=== PATIENT | male | born 1960 | race American Indian/Alaskan Native ===

== ENCOUNTER 2017-01-19 16:54 | Inpatient (IN) | payer MEDICAID ==
[2017-01-19 17:27] LABS: Basophils % (Auto) 0.7 % (0.0-1.8); Eosinophils % (Auto) 0.8 % (0.0-4.3); Hematocrit 44.2 % (35.5-45.6); Mean Corpuscular HGB Conc 32 % (32-34); Mean Corpuscular Hemoglobin 26 pg (28-32); Mean Corpuscular Volume 82 fl (84-94); Platelet Count 237 K/mm3 (140-440); Red Blood Count 5.38 M/mm3 (3.65-5.03); Red Cell Distribution Width 15.9 % (13.2-15.2); White Blood Count 10.9 K/mm3 (4.5-11.0)
[2017-01-19 17:51] LABS: Anion Gap 22 mmol/L; BUN/Creatinine Ratio 11.42; Blood Urea Nitrogen 8 mg/dL (9-20); Calcium 8.8 mg/dL (8.4-10.2); Carbon Dioxide 23 mmol/L (22-30); Chloride 93.6 mmol/L (98-107); Glucose 169 mg/dL (75-100); Potassium 4.2 mmol/L (3.6-5.0); Sodium 134 mmol/L (137-145)
[2017-01-19 19:11] LABS: Cholesterol 201 mg/dL (50-199); HDL Cholesterol 67 mg/dL (40-59); LDL Cholesterol,Direct 107 mg/dL (50-130); Triglycerides 135 mg/dL (2-149)
[2017-01-19] MEDS ORDERED: BABY ASPIRIN PO ONE (21:41)
--- NOTE | 2017-01-19 22:00 | Emergency Department Report ---
ED Chest Pain HPI - General Chief Complaint: Chest Pain Stated Complaint: CHEST PAIN Time Seen by Provider: 01/19/17 20:00 Source: patient Mode of arrival: Ambulatory Limitations: No Limitations - History of Present Illness Initial Comments: Patient is a 56-year-old male past medical history hypertension and diabetes who presents with chest pain been going on since this morning. He states that the chest pains of burning type of pain located in the middle of his chest it radiates to his shoulder. The pain is a 6 out of 10. Nothing makes the chest pain better or worse. Patient denies having shortness of breath or any nausea. Patient states that chest pain started when he was using the bathroom this morning. Patient has a history of cardiac disease in the family. He's never had chest pain like this before. - Related Data Home Medications Medication Instructions Recorded Confirmed Last Taken No Known Home Medications [No 01/19/17 01/19/17 Unknown Reported Home Medications] Allergies Allergy/AdvReac Type Severity Reaction Status Date / Time No Known Allergies Allergy Verified 01/19/17 17:12 Heart Score - HEART Score History: Highly suspicious EKG: Significant ST-depression Age: 45-65 Risk factors: > 3 risk factors or hx of atherosclerotic disease Troponin: 1-3x normal limit HEART Score: 8 ED Review of Systems ROS: Stated complaint: CHEST PAIN Other details as noted in HPI Constitutional: denies: chills, fever Eyes: denies: eye pain, eye discharge, vision change ENT: denies: ear pain, throat pain Respiratory: denies: cough, shortness of breath, wheezing Cardiovascular: chest pain Endocrine: no symptoms reported Gastrointestinal: denies: abdominal pain, nausea, diarrhea Genitourinary: denies: urgency, dysuria Musculoskeletal: denies: back pain, joint swelling, arthralgia Skin: denies: rash, lesions Neurological: denies: headache, weakness, paresthesias Psychiatric: denies: anxiety, depression Hematological/Lymphatic: denies: easy bleeding, easy bruising ED Past Medical Hx - Past Medical History Hx Hypertension: Yes Hx Diabetes: Yes Additional medical history: reflux - Surgical History Past Surgical History?: Yes Additional Surgical History: both knees - Social History Smoking Status: Current Every Day Smoker Substance Use Type: Alcohol - Medications Home Medications: Home Medications Medication Instructions Recorded Confirmed Last Taken Type No Known Home Medications [No 01/19/17 01/19/17 Unknown History Reported Home Medications] ED Physical Exam - General Limitations: No Limitations General appearance: alert - Head Head exam: Present: atraumatic, normocephalic - Eye Eye exam: Present: normal appearance - ENT ENT exam: Present: mucous membranes moist - Neck Neck exam: Present: normal inspection - Respiratory Respiratory exam: Present: normal lung sounds bilaterally. Absent: respiratory distress - Cardiovascular Cardiovascular Exam: Present: regular rate, normal rhythm. Absent: systolic murmur, diastolic murmur, rubs, gallop - GI/Abdominal GI/Abdominal exam: Present: soft, normal bowel sounds - Rectal Rectal exam: Present: deferred - Back Exam Back exam: Present: normal inspection - Neurological Exam Neurological exam: Present: alert, oriented X3, CN II-XII intact - Psychiatric Psychiatric exam: Present: normal affect, normal mood - Skin Skin exam: Present: warm, dry, intact, normal color. Absent: rash ED Course Vital Signs 01/19/17 17:09 Temperature 98.1 F Pulse Rate 73 Respiratory 16 Rate Blood Pressure 152/87 O2 Sat by Pulse 100 Oximetry - Reevaluation(s) Reevaluation #1: 01/19/17 22:02 Patient still complaining of chest pain repeat troponin came back elevated I'll order a repeat EKG LARRY score - Larry Score Age > 65: (0) No Aspirin use within the Past 7 Days: (0) No 3 or more CAD Risk Factors: (1) Yes 2 or more Angina events in past 24 hrs: (0) No Known CAD with more than 50% Stenosis: (0) No Elevated Cardiac Markers: (0) No ST Deviation Greater than 0.5mm: (0) No LARRY Score: 1 ED Medical Decision Making - Lab Data Result diagrams: 01/19/17 17:15 01/19/17 17:15 Lab Results 01/19/17 01/19/17 01/19/17 Range/Units 17:15 17:15 20:42 WBC 10.9 (4.5-11.0) K/mm3 RBC 5.38 H (3.65-5.03) M/mm3 Hgb 14.0 (11.8-15.2) gm/dl Hct 44.2 (35.5-45.6) % MCV 82 L (84-94) fl MCH 26 L (28-32) pg MCHC 32 (32-34) % RDW 15.9 H (13.2-15.2) % Plt Count 237 (140-440) K/mm3 Lymph % (Auto) 31.7 (13.4-35.0) % [place] % (Auto) 7.7 H (0.0-7.3) % Eos % (Auto) 0.8 (0.0-4.3) % Baso % (Auto) 0.7 (0.0-1.8) % Lymph # 3.4 (1.2-5.4) K/mm3 [place] # 0.8 (0.0-0.8) K/mm3 Eos # 0.1 (0.0-0.4) K/mm3 Baso # 0.1 (0.0-0.1) K/mm3 Seg Neutrophils % 59.1 (40.0-70.0) % Seg Neutrophils # 6.4 (1.8-7.7) K/mm3 Sodium 134 L (137-145) mmol/L Potassium 4.2 (3.6-5.0) mmol/L Chloride 93.6 L (98-107) mmol/L Carbon Dioxide 23 (22-30) mmol/L Anion Gap 22 mmol/L BUN 8 L (9-20) mg/dL Creatinine 0.7 L (0.8-1.5) mg/dL Estimated GFR > 60 ml/min BUN/Creatinine Ratio 11.42 % Glucose 169 H (75-100) mg/dL Calcium 8.8 (8.4-10.2) mg/dL Troponin T 0.054 H 0.142 H* D (0.00-0.029) ng/mL Triglycerides 135 (2-149) mg/dL Cholesterol 201 H (50-199) mg/dL LDL Cholesterol Direct 107 (50-130) mg/dL HDL Cholesterol 67 H (40-59) mg/dL Cholesterol/HDL Ratio 3.00 % - EKG Data -: EKG Interpreted by Me - EKG Data 01/19/17 22:03 EKG shows normal sinus rhythm possible left atrial enlargement and left axis deviation. She has an incomplete left bundle-branch block and T-wave inversions in V4, V5 and V6 - Medical Decision Making Chief medical diagnosis: Non-STEMI Differential medical diagnosis: Unstable angina, GERD, pneumothorax CHEST x-ray, EKG, CBC, CMP, troponin and I will give patient aspirin. Due to patient having significant risk factors for coronary artery disease I will admit patient to hospital patient will need IV analgesic medication for his pain. Critical care attestation.: If time is entered above; I have spent that time in minutes in the direct care of this critically ill patient, excluding procedure time. ED Disposition Clinical Impression: Chest pain at rest, Non-ST elevated myocardial infarction (non-STEMI) Disposition: OP ADMIT IP TO THIS HOSP Is pt being admited?: Yes Does the pt Need Aspirin: No Condition: Stable Instructions: Chest Pain (ED) Referrals: PRIMARY CARE, [Primary Care Provider] - 3-5 Days Time of Disposition: 22:24
[2017-01-19] MEDS ORDERED: MORPHINE IV ONE (22:07)
--- NOTE | 2017-01-19 22:27 | XRay Report ---
FINAL REPORT EXAM: XR CHEST ROUTINE 2V HISTORY: chest pain TECHNIQUE: PA and lateral chest radiographs PRIORS: None. FINDINGS: No focal consolidations are seen in the lungs and there are no pleural effusions.The cardiomediastinal silhouette is within normal limits for size and contour. No acute osseous abnormality is identified. IMPRESSION: 1. No definite radiographic evidence of acute cardiopulmonary disease.
[2017-01-19] MEDS ORDERED: HEPARIN 10,000 UNITS/10 ML IV ONE (23:06)
[2017-01-19] MEDS ORDERED: ZOFRAN IV PRN (23:10)
[2017-01-19] MEDS ORDERED: MORPHINE IV PRN (23:10)
[2017-01-19] MEDS ORDERED: TYLENOL PO PRN (23:11)
[2017-01-19 23:53] LABS: Hematocrit 42.8 % (35.5-45.6); Hemoglobin 13.5 gm/dl (11.8-15.2)
[2017-01-20 00:12] LABS: INR 1.02 (0.87-1.13)
[2017-01-20 00:13] LABS: Partial Thromboplastin Time 30.2 Sec. (24.2-36.6)
[2017-01-20] MEDS: HEPARIN/ 0.45% NACL-25,000 UNIT/500 ML 25,000 UNIT/500 ML BAG IV SCH (00:55)
[2017-01-20] MEDS: NITRO-BID 2% TP SCH ×5 (00:57→17:06)
--- NOTE | 2017-01-20 07:58 | Admit Criteria Form ---
Admission Criteria Documentation: MYOCARDIAL INFARCTION Clinical Indications for Admission to Inpatient Care (Place 'X' for any and all applicable criteria): Admission is indicated for 1 or more of the following (1)(2)(3)(4): [X]I. Acute IL [X]II. Contraindications and/or Inappropriate clinical situations for Observational Care in patients with Myocardial Infarction, when ANY ONE of the following is required: [ ]a) Patient with High risk of cardiac embolism (e.g, patients with previous cardiac embolism, LVEF < 40%, age >75 and patients with prosthetic valve) 18 [ ]b) Patient with Moderate risk including DM patient, CAD and patient aged 65-75 18 [X]c) Patient with any change in cardiac biomarker especially troponin should be managed as high risk in an inpatient setting 19 [ ]d) Physician judgement irrespective of ECG and other diagnostic findings 20 [ ]III.General contraindications and/or Inappropriate clinical situations for Observational Care in patients with Myocardial Infarction, when ANY ONE of the following is required: [ ]a) Prediction of prolongation of LOS based on ANY ONE of the following may be considered as a contraindication for observational care 2, 3, 4, 5, 6, 7, 8, 9, 10, 11 [ ]i) Age > 65 yrs. [ ]ii) Patient arriving by ambulance [ ]iii) Patient with high acuity [ ]iv) Patient requiring vital sign monitoring [ ]v) Patient on IV medication [ ]b) Systolic blood pressures greater than or equal to 180mmHg 3,12 [ ]c) Patient with altered mental status including delirium and other alteration of consciousness, (3) [ ]d) Patient whose discharge disposition will be to a fpc home or rehabilitation home should not be managed in Emergency Department Observation Unit. CMS rule requires 3 days hospital stay before such placement. 3,13 [ ]e) Patient with failure to thrive due to broad array of etiologies 3 ,16,17 [ ]f) Inability to ambulate 3,14 Extended stay beyond goal length of stay may be needed for (1)(18)(20)(24)(25): [ ]a) Hemodynamic instability, persisting symptoms after intensive medical management, or recurring severe, prolonged symptoms [ ]b) Intravascular procedural complications such as acute vessel closure, stent thrombosis, stent malposition, or vessel dissection (26)(27)(28) [ ]c) Extravascular procedural complications such as retroperitoneal hematoma , pericardial effusion, or cardiac tamponade [ ]d) Entry site complications causing bleeding, hematoma or distal ischemia and requiring ongoing monitoring, surgical repair or surgical thrombectomy. Dangerous arrhythmia [ ]e) Complicated percutaneous coronary intervention (e.g., unsuccessful percutaneous coronary intervention or percutaneous coronary intervention of non- [facility] vessel) [ ]f) Urgent or emergent surgery for complications of IL (e.g., ventricular rupture, valvular insufficiency) [ ]g) Surgical revascularization via coronary artery bypass graft [ ]h) Heart failure (e.g., pulmonary edema) [ ]i) Unstable pulmonary comorbidities, including COPD or pneumonia (31) [ ]j) Acute renal failure The original [employer] content created by [employer] has been revised. The portions of the content which have been revised are identified through the use of italic text or in bold, and [facility] [employer] has neither reviewed nor approved the modified material. All other unmodified content is copyright [facility] Please see references footnoted in the original [facility] edition 2016 Admission Criteria Met: Yes
--- NOTE | 2017-01-20 08:16 | Progress Note ---
Assessment and Plan Assessment and plan: --Non-ST elevation CO Aspirin beta blockers and elvia inhibitors nitrates and statins Heparin drip per protocol, lipid panel, Echocardiogram for left ventricle function ejection fraction Cardiology evaluation for possible heart cath --Dyslipidemia: Add Lipitor, Low-cholesterol diet --Ongoing tobacco use: Smoking cessation counseling done Strongly advised to quit tobacco use, nicotine patch as needed --DVT prophylaxis: Heparin drip Closely monitor the patient and adjust the management as needed Follow cardiology evaluation and recommendations Plan of care discussed with the patient and his nurse History Interval history: Patient Seen and evaluated medical records reviewed No new events reported by the nursing staff Complaints of intermittent chest pain Alert awake oriented 3 not in acute distress Hospitalist Physical - Constitutional Vitals: Temp Pulse Resp BP Pulse Ox 100.3 F H 76 18 147/85 99 01/20/17 07:15 01/20/17 07:15 01/20/17 07:15 01/20/17 07:15 01/20/17 07:15 General appearance: Present: no acute distress, well-nourished - EENT Eyes: Present: PERRL, EOM intact - Neck Neck: Present: supple, normal ROM - Respiratory Respiratory effort: normal Respiratory: bilateral: diminished, negative: rales, rhonchi, wheezing - Cardiovascular Rhythm: regular Heart Sounds: Present: S1 & S2 - Extremities Extremities: no ischemia, No edema Extremity abnormal: edema, cyanosis - Abdominal General gastrointestinal: soft, non-tender, non-distended, normal bowel sounds - Integumentary Integumentary: Present: clear, warm - Psychiatric Psychiatric: appropriate mood/affect, cooperative - Neurologic Neurologic: CNII-XII intact, moves all extremities Results - Labs CBC & Chem 7: 01/19/17 23:28 01/19/17 17:15 Labs: Laboratory Last Values WBC 10.9 K/mm3 (4.5-11.0) 01/19/17 17:15 RBC 5.38 M/mm3 (3.65-5.03) H 01/19/17 17:15 Hgb 13.5 gm/dl (11.8-15.2) 01/19/17 23:28 Hct 42.8 % (35.5-45.6) 01/19/17 23:28 MCV 82 fl (84-94) L 01/19/17 17:15 MCH 26 pg (28-32) L 01/19/17 17:15 MCHC 32 % (32-34) 01/19/17 17:15 RDW 15.9 % (13.2-15.2) H 01/19/17 17:15 Plt Count 222 K/mm3 (140-440) 01/19/17 23:28 Lymph % (Auto) 31.7 % (13.4-35.0) 01/19/17 17:15 [place] % (Auto) 7.7 % (0.0-7.3) H 01/19/17 17:15 Eos % (Auto) 0.8 % (0.0-4.3) 01/19/17 17:15 Baso % (Auto) 0.7 % (0.0-1.8) 01/19/17 17:15 Lymph # 3.4 K/mm3 (1.2-5.4) 01/19/17 17:15 [place] # 0.8 K/mm3 (0.0-0.8) 01/19/17 17:15 Eos # 0.1 K/mm3 (0.0-0.4) 01/19/17 17:15 Baso # 0.1 K/mm3 (0.0-0.1) 01/19/17 17:15 Seg Neutrophils % 59.1 % (40.0-70.0) 01/19/17 17:15 Seg Neutrophils # 6.4 K/mm3 (1.8-7.7) 01/19/17 17:15 PT 13.3 Sec. (12.2-14.9) 01/19/17 23:28 INR 1.02 (0.87-1.13) 01/19/17 23:28 APTT 30.2 Sec. (24.2-36.6) 01/19/17 23:28 Heparin Anti-Xa Level 0.24 U.I./ml (0.3-0.7) L 01/20/17 07:29 Sodium 134 mmol/L (137-145) L 01/19/17 17:15 Potassium 4.2 mmol/L (3.6-5.0) 01/19/17 17:15 Chloride 93.6 mmol/L (98-107) L 01/19/17 17:15 Carbon Dioxide 23 mmol/L (22-30) 01/19/17 17:15 Anion Gap 22 mmol/L 01/19/17 17:15 BUN 8 mg/dL (9-20) L 01/19/17 17:15 Creatinine 0.7 mg/dL (0.8-1.5) L 01/19/17 17:15 Estimated GFR > 60 ml/min 01/19/17 17:15 BUN/Creatinine Ratio 11.42 % 01/19/17 17:15 Glucose 169 mg/dL (75-100) H 01/19/17 17:15 Calcium 8.8 mg/dL (8.4-10.2) 01/19/17 17:15 Troponin T 0.322 ng/mL (0.00-0.029) H* D 01/19/17 23:28 Triglycerides 135 mg/dL (2-149) 01/19/17 17:15 Cholesterol 201 mg/dL (50-199) H 01/19/17 17:15 LDL Cholesterol Direct 107 mg/dL (50-130) 01/19/17 17:15 HDL Cholesterol 67 mg/dL (40-59) H 01/19/17 17:15 Cholesterol/HDL Ratio 3.00 % 01/19/17 17:15
--- NOTE | 2017-01-20 09:11 | History and Physical Report ---
CHIEF COMPLAINT: Chest pain. HISTORY OF PRESENTING ILLNESS: The patient is a 56-year-old male who said he has been having chest pain going on since yesterday morning. He described the pain as pressure sensation involving the retrosternal and precordial area radiating to the left shoulder area. The patient quantifies pain as 6/10. There was no history of shortness of breath. No history of nausea or vomiting. There was also no history of diaphoresis or dizziness. The patient said he has had chest pain before, that was worked up and resulted in nothing significant. PAST MEDICAL HISTORY: Pertinent for diabetes mellitus and hypertension as well as gastroesophageal reflux disease. PAST SURGICAL HISTORY: Pertinent for both knee surgery. FAMILY HISTORY: There is family history of coronary artery disease. SOCIAL HISTORY: The patient smokes cigarettes, drinks alcohol and denies use of illicit drugs. MEDICATIONS: The patient's home medications are not known. ALLERGIES: There are no known drug allergies. REVIEW OF SYSTEMS: CONSTITUTIONAL: There is no fever, no chills, no diaphoresis. HEENT: There is no headache or sore throat. CARDIOVASCULAR: Shows chest pain. No orthopnea. RESPIRATORY: There is no shortness of breath or cough. GASTROINTESTINAL: There is no nausea, no vomiting, no abdominal pain, diarrhea or constipation. NEUROLOGICAL: There is no numbness, no dizziness, no altered mental status. MUSCULOSKELETAL: There is no joint pain or swelling. DERMATOLOGICAL: There is no skin rash or itching. GENITOURINARY: There is no dysuria, hematuria, or flank pain. Rest of system review is normal. PHYSICAL EXAMINATION: GENERAL: At the time of exam, the patient was found to be alert, oriented x 3 and not in acute distress. VITAL SIGNS: Shows normal temperature with pulse of 69, respirations 16, blood pressure 162/92, O2 sat of 96% on room air. HEENT: Shows pupils to be equal, round, reactive to light and accommodation. Extraocular muscles are intact. NECK: Supple with no JVD or carotid bruit. CARDIOVASCULAR SYSTEM: Show first and second heart sounds with no gallops or murmur. RESPIRATORY SYSTEM: Show good air entry on both sides of the lung with no abnormal breath sounds. GASTROINTESTINAL SYSTEM: Show abdomen to be full, soft, nontender with no organomegaly or rigidity. NEUROLOGIC: Exam shows no focal deficit. MUSCULOSKELETAL: Show no joint swelling or tenderness. DERMATOLOGICAL SYSTEM: Show no skin rash. GENITOURINARY: Showing no costovertebral angle tenderness. PERTINENT LABORATORY DATA AND IMAGING STUDIES: The patient has CBC done with normal white count, normal hemoglobin, normal hematocrit with an unremarkable CBC differential. Coagulation studies came back normal. Chemistry shows slight decrease in sodium of 134 with normal potassium and low chloride of 93.6. The patient's renal function test was unremarkable. Cardiac enzymes show elevated troponin level of 0.054 with the second troponin level greater than he initially had to 0.322. The patient's lipid panel showed high cholesterol of 201 with also elevated HDL cholesterol of 67. IMAGING STUDIES: The patient had chest x-ray done that shows no acute cardiopulmonary lesion. DIAGNOSIS: Non-ST elevation myocardial infarction. PLAN: The patient will be admitted to medical floor on telemetry and will be on heparin per NSTEMI protocol with bolus and drip started. The patient will have cardiac enzymes, troponin checked q.6 hours x 1 more level. The patient will be on aspirin 325 mg by mouth daily and also will be on morphine 2 mg IV every 3 hours as needed for pain. The patient will be on nitro paste 1 inch to anterior chest wall q.i.d. and will be on Zofran 4 mg IV q.6 hours as needed for nausea and vomiting. The patient will be on Tylenol 650 mg p.o. q.4h. for fever and headache and will have Cardiology consult with Dr. Landon. The patient will remain n.p.o. for possible Cardiology intervention in the morning and patient's home medications will also be reconciled and started accordingly. The patient will be on oxygen 2 L by nasal cannula. JOB# [id number] OCN/NTS
--- NOTE | 2017-01-20 12:30 | Event Note ---
Date: 01/20/17 Cardiology note dictated. #1 chest pain with abnormal cardiac enzymes and abnormal EKG possible NSTEMI #2 history of hypertension #3 history of diabetes Patient is seen for cardiac evaluation.Patient is curently asymtomatic. Plan is cardiac cath for further evaluation Thank you Dr BRIGITTE Killian
[2017-01-20] MEDS ORDERED: NACL 0.9% 500 ML 500 ML IV SCH (13:00)
[2017-01-20 13:17] LABS: Creatine Kinase MB 47.8 ng/mL (0.0-4.0)
[2017-01-20] MEDS: ZESTRIL PO SCH (13:24)
[2017-01-20] MEDS: HABITROL TD SCH ×2 (13:25→15:11)
[2017-01-20] MEDS: LOPRESSOR PO SCH (13:27)
[2017-01-20] MEDS: ASPIRIN PO SCH (13:28)
[2017-01-20] MEDS: PEPCID PO SCH (23:25)
[2017-01-21] MEDS: HEPARIN/ 0.45% NACL-25,000 UNIT/500 ML 25,000 UNIT/500 ML BAG IV SCH (00:06)
[2017-01-21 05:58] LABS: Basophils % (Auto) 0.8 % (0.0-1.8); Eosinophils % (Auto) 1.6 % (0.0-4.3); Hematocrit 40.1 % (35.5-45.6); Hemoglobin 12.8 gm/dl (11.8-15.2); Mean Corpuscular HGB Conc 32 % (32-34); Mean Corpuscular Hemoglobin 26 pg (28-32); Mean Corpuscular Volume 82 fl (84-94); Platelet Count 195 K/mm3 (140-440); Red Blood Count 4.88 M/mm3 (3.65-5.03); Red Cell Distribution Width 15.3 % (13.2-15.2); White Blood Count 9.1 K/mm3 (4.5-11.0)
[2017-01-21 06:06] LABS: INR 1.07 (0.87-1.13)
--- NOTE | 2017-01-21 06:12 | Consultation ---
CARDIOLOGY EVALUATION REASON FOR EVALUATION: Chest pain and abnormal cardiac enzymes. 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 The patient smokes about a pack of cigarettes a week. Yesterday morning for the first time, he woke up with anterior chest discomfort described as a burning sensation. It lasted almost throughout until he came to the hospital. In the Emergency Room, the electrocardiograms showed sinus rhythm with left ventricular hypertrophy and T-wave abnormalities in the inferior and lateral leads. The patient is admitted for further evaluation. His second set of troponin is noted to be mildly elevated and hence the further cardiac evaluation. Today, his chest pain has improved significantly. No further discomfort noted. When he had the discomfort, it is mostly across the chest with some local tenderness as well as some radiation to the left shoulder. The discomfort is described as mostly a burning sensation. The patient had no prior myocardial infarction or history to indicate angina pectoris. He uses a bicycle to exercise occasionally. No regular exercise. The patient has a strong family history of coronary artery disease and three of his brothers known to have significant coronary artery disease. The patient drinks about a 6-pack of beer every week. REVIEW OF SYSTEMS: HEAD, EYES, EARS, NOSE AND THROAT: No symptoms. ENDOCRINE: History of diabetes. No history of thyroid problems. GASTROINTESTINAL: No abdominal pain, nausea, or vomiting. The patient is known to have had reflux disease. GENITOURINARY: No symptoms. CENTRAL NERVOUS SYSTEM: No history of cerebrovascular accident or convulsive disorder. PERSONAL HISTORY: Smokes 1 pack a week and drinks 6 packs of beer every week. ALLERGIES: No drug allergies. PHYSICAL EXAMINATION: GENERAL: Adult male, well built, well nourished, no acute distress. VITAL SIGNS: Blood pressure 148/80, pulse 70, respirations 18. HEENT: Unremarkable. NECK: Supple, no thyromegaly, both carotids are palpable and equal. Neck veins are flat. CHEST: Symmetrical. LUNGS: Clear. HEART: S1 and S2 are heard. No significant murmurs are appreciated. ABDOMEN: Soft and nontender, no hepatosplenomegaly. ____. EXTREMITIES: No edema or calf tenderness. LABORATORY DATA: EKG is sinus rhythm, left ventricular hypertrophy with associated ST-T changes, inferior and lateral T-wave changes may indicate ischemia. LABORATORY DATA: WBC 10.9, hemoglobin 14, hematocrit 44.2. Sodium 134, potassium 4.2. Total cholesterol 201, LDL 107, HDL 67. Troponin ____. Chest x-ray, no acute abnormalities noted. IMPRESSION: 1. Chest pain with abnormal cardiac enzymes and abnormal EKG. Possible non-ST elevation myocardial infarction. 2. Hypertension. 3. History of diabetes. The patient is seen for cardiac evaluation. At present, he has no significant chest pain rated The patient is currently on IV heparin, atorvastatin, lisinopril and beta brendan. PLAN: To continue current management and proceed with cardiac catheterization tomorrow further and definitive evaluation. The patient apparently had a cardiac catheterization about 3-4 years ago at the [facility] and had no significant problem. The patient will be monitored and followed closely. Thank you for allowing me to participate in the care of this patient. JOB# [id number] VELMA/RADHA SLADE
[2017-01-21 06:18] LABS: Anion Gap 22 mmol/L; Blood Urea Nitrogen 7 mg/dL (9-20); Calcium 8.6 mg/dL (8.4-10.2); Carbon Dioxide 23 mmol/L (22-30); Chloride 95.5 mmol/L (98-107); Glucose 154 mg/dL (75-100); Sodium 136 mmol/L (137-145)
[2017-01-21] MEDS ORDERED: ASPIRIN ONE (08:10)
[2017-01-21] MEDS: ASPIRIN PO SCH ×2 (08:12→10:40)
[2017-01-21] MEDS ORDERED: NACL 0.9% 500 ML 500 ML ONE (08:21)
[2017-01-21] MEDS ORDERED: HEPARIN/NS 5000 UNIT/500ML(CATH LAB) 1,000 ML IR ONE (08:47)
[2017-01-21] MEDS ORDERED: HEPARIN 10,000 UNITS/10 ML ONE (08:47)
[2017-01-21] MEDS ORDERED: VERSED ONE (08:47)
[2017-01-21] MEDS ORDERED: NITROGLYCERIN SYRINGE 6 ML ONE (08:48)
[2017-01-21] MEDS ORDERED: CALAN ONE (08:48)
[2017-01-21] MEDS ORDERED: SUBLIMAZE ONE (08:48)
[2017-01-21] MEDS ORDERED: XYLOCAINE 2% INFILTRATI ONE (08:48)
[2017-01-21] MEDS: NITRO-BID 2% TP SCH ×2 (10:40→10:41)
[2017-01-21] MEDS: ZESTRIL PO SCH (10:55)
[2017-01-21] MEDS: PEPCID PO SCH ×2 (10:56→21:58)
[2017-01-21] MEDS: LOPRESSOR PO SCH ×3 (10:56→21:58)
[2017-01-21] MEDS: PLAVIX PO SCH (10:57)
[2017-01-21] MEDS: IMDUR PO SCH (10:57)
--- NOTE | 2017-01-21 11:47 | Progress Note ---
Assessment and Plan Assessment: NSTEMI CAD HTN DM OA Tobacco use Plan: s/p C this AM via right radial artery which showed mild to moderate nonobstructive CAD with distal small vessel disease. Initiate plavix and Imdur. Increase lipitor to 80mg daily. D/c heparin gtt. Cont ASA, BB, and ACEI. Await echo. Possible d/c home in AM. The patient has been seen in conjunction with Dr. Nelda Killian who agrees with the assessment and plan of care. Subjective Date of service: 01/21/17 Principal diagnosis: NSTEMI Interval history: pt with no complaints. s/p LHC. VSS. Objective Last Vital Signs Temp 98.8 F 01/21/17 10:37 Pulse 72 01/21/17 10:56 Resp 20 01/21/17 10:37 BP 143/86 01/21/17 10:56 Pulse Ox 95 01/21/17 10:37 - Physical Examination General: Appears Well HEENT: Positive: PERRL, Normocephaly, Mucus Membranes Moist Neck: Positive: neck supple, trachea midline Cardiac: Positive: Reg Rate and Rhythm, S1/S2 Lungs: Positive: Normal Exam, clear to auscultation, Normal Breath Sounds Neuro: Positive: Grossly Intact, Cranial Nerve 2-12 Intact Abdomen: Positive: Unremarkable, Soft, Active Bowel Sounds Incision: Cardiac Cath Site (right radial c/d/i, no bleeding or hematoma) Extremities: Absent: edema - Labs and Meds Cardiac Enzymes 01/20/17 Range/Units 12:25 CK-MB (CK-2) 47.8 H (0.0-4.0) ng/mL Coagulation 01/21/17 Range/Units 05:37 PT 13.8 (12.2-14.9) Sec. INR 1.07 (0.87-1.13) CBC 01/21/17 Range/Units 05:37 WBC 9.1 (4.5-11.0) K/mm3 RBC 4.88 (3.65-5.03) M/mm3 Hgb 12.8 (11.8-15.2) gm/dl Hct 40.1 (35.5-45.6) % Plt Count 195 (140-440) K/mm3 Lymph # 4.2 (1.2-5.4) K/mm3 [place] # 0.9 H (0.0-0.8) K/mm3 Eos # 0.1 (0.0-0.4) K/mm3 Baso # 0.1 (0.0-0.1) K/mm3 Comprehensive Metabolic Panel 01/21/17 Range/Units 05:37 Sodium 136 L (137-145) mmol/L Potassium 4.0 (3.6-5.0) mmol/L Chloride 95.5 L (98-107) mmol/L Carbon Dioxide 23 (22-30) mmol/L BUN 7 L (9-20) mg/dL Creatinine 0.7 L (0.8-1.5) mg/dL Glucose 154 H (75-100) mg/dL Calcium 8.6 (8.4-10.2) mg/dL - Imaging and Cardiology EKG: image reviewed Echo: pending Cardiac cath: report reviewed - Telemetry EKG Rhythm: Sinus Rhythm
--- NOTE | 2017-01-21 12:12 | Cardiac Catherization Report ---
CARDIAC CATHETERIZATION REFERRING PHYSICIAN: INDICATION FOR PROCEDURE: The patient is a pleasant 56-year-old -[place] gentleman with multiple risk factors including tobacco abuse and hypertension, who presents here with chest pain and abnormal cardiac enzymes consistent with non-ST elevation myocardial infarction. He is referred for left heart catheterization. PROCEDURE IN DETAIL: The patient presents to the aquatic life laborer in a postabsorptive state, prepped in a sterile fashion. Bereket's test in right hand was normal. A 2 mL of 2% lidocaine used to anesthetize the right wrist. A standard 6-[place] hydrophilic sheath used to cannulate the right radial artery via modified Seldinger technique. All exchanges performed to exchange a J-tip guidewire. JL3.5 catheter used to engage left main. No dampening or ventricularization. Cineangiography performed in all projections. Next, a JR4 catheter used to cross the aortic valve under fluoroscopic guidance. Left ventriculography performed in 30 HOLDEN and 30 [place] projections via hand injections, catheter flushed. Manual pullback performed with continuous pressure monitoring. Catheter used to engage the right coronary. No dampening or ventricularization. Cineangiography performed in all projections. DATA: Aortic pressure is 130/80, LV pressure is 130, LVP of 12 mmHg. Left ventriculography revealed normal systolic performance with estimated ejection fraction of 55-60%. No evidence of aortic stenosis. CORONARY ANATOMY: This is a strongly left dominant system. Right coronary is very small and nondominant. Left main without significant disease. There is significant calcium in the LAD and left circumflex. LAD is a moderate-sized vessel, courses anterior intergroove, heavily calcified proximal and mid LAD, the proximal LAD has a 25% stenosis, the mid LAD has a 40-50% stenosis. LARRY-3 flow throughout left dominant left circumflex noted. There is a large dominant OM trunk and a large left PDA without significant disease. There is a very small branch off the OM trunk, probably a 15 vessel with LARRY-2 flow and a 90% stenosis proximally. This is likely the culprit, but too small to intervene on as it is a small vessel and a branch of a branch. LARRY-3 flow well throughout. The patient is chest pain free. We will manage medically. CONCLUSIONS: 1. Mild to moderate nonobstructive coronary artery disease with distal small vessel disease. A very small branch off OM with 90% proximal stenosis and LARRY-2 flow, likely culprit, but too small to intervene upon medical management. 2. A 25% proximal heavily calcified LAD with 25% proximal LAD and 40-50% mid LAD with LARRY-3 flow medical management recommended. 3. Normal left ventricular systolic performance, estimated ejection fraction of 50-55%. No evidence of aortic stenosis. At this point, recommend aggressive medical management, needs to quit smoking, intensive statin therapy, and risk factor modification. The patient is at least an intermediate risk for future cardiac events given [id number] nonobstructive disease with heavily calcified lesions, needs to be follow up closely. A long discussion with the patient, he expresses understanding medical management and risk factor modification. The patient is clinically stable and chest pain free at this time. JOB# [id number] MARCIE/RADHA
[2017-01-21] MEDS: HABITROL TD SCH (14:00)
--- NOTE | 2017-01-21 16:43 | Progress Note ---
Assessment and Plan Assessment and plan: Patient is a 56-year-old man with a history of hypertension, tobacco dependency and dyslipidemia who presents with chest pain -Chest pain with Non-STEMI status post cardiac catheterization: Medical management -Tobacco dependency: counseling stopping -Dyslipidemia: Statins Anticipate discharge tomorrow History Interval history: Patient seen and examined. Follow up on current diagnosis/cp. Overnight uneventful. No cp, sob, n/v or severe headaches. Imaging, old records, testing, labs, nursing notes reviewed. Hospitalist Physical - Physical exam Narrative exam: GEN: WDWN, NAD, AWAKE, ALERT, ORIENTATED x 3 HEENT: NCAT, PERRL, EOMI, OP CLEAR NECK: SUPPLE, NO THYROMEGALY, NO JVD, NO LAD CVS: RRR, NORMAL S1S2 LUNGS/CHEST: CTA B, NORMAL CHEST EXPANSION B, GOOD AIR ENTRY B ABD: SOFT, NTND, GBS, NO REBOUND OR GUARDING EXT/SKIN: NO SIGNIFICANT EDEMA OR RASH MSK: FROM X 4 EXTREMITIES NEURO: CN 2-12 GROSSLY INTACT, NO FOCAL DEFICITS PSY: CALM - Constitutional Vitals: Temp Pulse Resp BP Pulse Ox 98.3 F 93 H 18 148/84 95 01/21/17 12:38 01/21/17 12:38 01/21/17 12:38 01/21/17 12:38 01/21/17 12:38 General appearance: Present: no acute distress, well-nourished Results - Labs CBC & Chem 7: 01/21/17 05:37 01/21/17 05:37 Labs: Laboratory Last Values WBC 9.1 K/mm3 (4.5-11.0) 01/21/17 05:37 RBC 4.88 M/mm3 (3.65-5.03) 01/21/17 05:37 Hgb 12.8 gm/dl (11.8-15.2) 01/21/17 05:37 Hct 40.1 % (35.5-45.6) 01/21/17 05:37 MCV 82 fl (84-94) L 01/21/17 05:37 MCH 26 pg (28-32) L 01/21/17 05:37 MCHC 32 % (32-34) 01/21/17 05:37 RDW 15.3 % (13.2-15.2) H 01/21/17 05:37 Plt Count 195 K/mm3 (140-440) 01/21/17 05:37 Lymph % (Auto) 45.7 % (13.4-35.0) H 01/21/17 05:37 [place] % (Auto) 10.3 % (0.0-7.3) H 01/21/17 05:37 Eos % (Auto) 1.6 % (0.0-4.3) 01/21/17 05:37 Baso % (Auto) 0.8 % (0.0-1.8) 01/21/17 05:37 Lymph # 4.2 K/mm3 (1.2-5.4) 01/21/17 05:37 [place] # 0.9 K/mm3 (0.0-0.8) H 01/21/17 05:37 Eos # 0.1 K/mm3 (0.0-0.4) 01/21/17 05:37 Baso # 0.1 K/mm3 (0.0-0.1) 01/21/17 05:37 Seg Neutrophils % 41.6 % (40.0-70.0) 01/21/17 05:37 Seg Neutrophils # 3.8 K/mm3 (1.8-7.7) 01/21/17 05:37 PT 13.8 Sec. (12.2-14.9) 01/21/17 05:37 INR 1.07 (0.87-1.13) 01/21/17 05:37 APTT 30.2 Sec. (24.2-36.6) 01/19/17 23:28 Heparin Anti-Xa Level 0.28 U.I./ml (0.3-0.7) L 01/21/17 05:37 Sodium 136 mmol/L (137-145) L 01/21/17 05:37 Potassium 4.0 mmol/L (3.6-5.0) 01/21/17 05:37 Chloride 95.5 mmol/L (98-107) L 01/21/17 05:37 Carbon Dioxide 23 mmol/L (22-30) 01/21/17 05:37 Anion Gap 22 mmol/L 01/21/17 05:37 BUN 7 mg/dL (9-20) L 01/21/17 05:37 Creatinine 0.7 mg/dL (0.8-1.5) L 01/21/17 05:37 Estimated GFR > 60 ml/min 01/21/17 05:37 BUN/Creatinine Ratio 10.00 % 01/21/17 05:37 Glucose 154 mg/dL (75-100) H 01/21/17 05:37 POC Glucose 144 (70-105) H 01/21/17 06:09 Calcium 8.6 mg/dL (8.4-10.2) 01/21/17 05:37 Total Creatine Kinase 1086 units/L (55-170) H 01/20/17 12:25 CK-MB (CK-2) 47.8 ng/mL (0.0-4.0) H 01/20/17 12:25 CK-MB (CK-2) Rel Index 4.4 (0-4) H 01/20/17 12:25 Troponin T 1.570 ng/mL (0.00-0.029) H* D 01/20/17 12:25 Triglycerides 135 mg/dL (2-149) 01/19/17 17:15 Cholesterol 201 mg/dL (50-199) H 01/19/17 17:15 LDL Cholesterol Direct 107 mg/dL (50-130) 01/19/17 17:15 HDL Cholesterol 67 mg/dL (40-59) H 01/19/17 17:15 Cholesterol/HDL Ratio 3.00 % 01/19/17 17:15
--- NOTE | 2017-01-22 09:51 | Query- SIRS ---
Danya Mitchell____Jeff Date:____01/22/17 Magnetic Resonance Imaging Coordinator/CDS:____Deni Wes Phone#:___[phone] Exercise your independent professional judgment when responding to query. Questions asked do not imply a particular answer is desired or expected. We greatly appreciate your clarification on this issue. Clinical Documentation States: 56 year old male was admitted on 01/19/17. The hospitalist progress note (Dr. Aguilar 01/21/17) states " Assessment and plan: Patient is a 56-year-old man with a history of hypertension, tobacco dependency and dyslipidemia who presents with chest pain -Chest pain with Non-STEMI status post cardiac catheterization: Medical management " Clinical Findings Show (include reference to source document): Temperature: 100.3 Pulse : 93 Respiratory rate: 25 Based on the above clinical scenario and your knowledge of the patient, please indicate the most appropriate diagnosis: [ ] SIRS (non-infectious) with Acute Organ Dysfunction [x ] SIRS (non-infectious) without Acute Organ Dysfunction [ ] Other: [ ] Unable to determine [ ] Comment/Explanation: Present on Admission: [x ] Yes (Y) [ ] Clinically undeterminable (W) [ ] No (N) Please also document response in your Progress Notes and/or Discharge Summary and indicate if the condition was present on admission. [place]
[2017-01-22] MEDS: IMDUR PO SCH (09:58)
[2017-01-22] MEDS: ASPIRIN PO SCH (09:59)
[2017-01-22] MEDS: PEPCID PO SCH (09:59)
[2017-01-22] MEDS: PLAVIX PO SCH (09:59)
[2017-01-22] MEDS: ZESTRIL PO SCH (09:59)
[2017-01-22] MEDS: LOPRESSOR PO SCH (10:01)
--- NOTE | 2017-01-22 10:37 | Discharge Summary ---
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 Was contact made?: Yes If yes, spoke with:: Lotus Time called:: 08:48 Primary care physician: STAMPING OPERATOR Hospitalization Condition: Stable Hospital course: Patient is a 56-year-old man with a history of hypertension, tobacco dependency and dyslipidemia who presents with chest pain -Chest pain with Non-STEMI status post cardiac catheterization: Medical management -Tobacco dependency: counseling stopping -Dyslipidemia: Statins -SIRS Anticipate discharge tomorrow 01/21/2017 Cardiac catheterization read as "mild to moderate nonobstructive coronary artery disease with distal small vessel disease. Very small branch off OM with 90% proximal stenosis and LARRY-2 flow likely culprit but was too small to to intervene upon medical management, a 25% proximal heavily calcified LAD with 25% proximal LAD and 4050 percent mild LAD with LARRY 3 flow medical management recommended, no more left ventricular systolic performance, estimated EF of 50-55%, no evidence of aortic stenosis. At this point, recommend aggressive medical management, need to quit smoking, intensive statin therapy and risk factor modification. The patient is at least an intermediate risk for further artery complaints given mild to moderate nonobstructive disease with heavily calcified lesions, need to follow up closely. A long discussion with the patient, he expressed understanding medical management and risk factor modification. Patient is clinically stable chest pain-free at this time." per Dr. Slick Killian Disposition: DC-01 TO HOME OR SELFCARE Time spent for discharge: 34 minutes Core Measure Documentation - Palliative Care Palliative Care/ Comfort Measures: Not Applicable - Core Measures Any of the following diagnoses?: acute DE - VTE Discharge Requirements Deep Vein Thrombosis/Pulmonary Embolism Present on Admission: No Has pt received <5 days of overlap therapy or INR<2.0: No Anticoagulant overlap therapy prescribed at discharge: No Contraindication No Overlap Therapy order at DC: Not Indicated - Acute DE Discharge Requirements Aspirin at discharge: Yes DANIE/ARB for LVSD if EF <40%: Yes Beta brednan at discharge: Yes Statin for LDL = or >100 mg/dl on DC: Yes Exam - Physical Exam Narrative exam: GEN: WDWN, NAD, AWAKE, ALERT, ORIENTATED x 3 HEENT: NCAT, PERRL, EOMI, OP CLEAR NECK: SUPPLE, NO THYROMEGALY, NO JVD, NO LAD CVS: RRR, NORMAL S1S2 LUNGS/CHEST: CTA B, NORMAL CHEST EXPANSION B, GOOD AIR ENTRY B ABD: SOFT, NTND, GBS, NO REBOUND OR GUARDING EXT/SKIN: NO SIGNIFICANT EDEMA OR RASH MSK: FROM X 4 EXTREMITIES NEURO: CN 2-12 GROSSLY INTACT, NO FOCAL DEFICITS PSY: CALM - Constitutional Vitals: Temp Pulse Resp BP Pulse Ox 98.9 F 82 18 140/93 97 01/22/17 07:55 01/22/17 10:01 01/22/17 07:55 01/22/17 10:01 01/22/17 07:55 Plan Activity: other (no strenous activites until cleared by PCP. ) Diet: low salt Special Instructions: smoking cessation Follow up with: PRIMARY CAREMD [Primary Care Provider] - 3-5 Days GLENYS PHAM MD [Staff Physician] - 01/29/17 1:00 pm Prescriptions: Clopidogrel [Plavix] 75 mg PO QDAY #30 tablet ISOSORBIDE MONOnitrate [Imdur ER] 30 mg PO QDAY #30 tablet Lisinopril [Zestril TAB] 2.5 mg PO QDAY #30 tablet Metoprolol [Lopressor TAB] 12.5 mg PO BID #60 tablet
--- NOTE | 2017-01-22 11:30 | Progress Note ---
Assessment and Plan Patient is admitted with chest pain and had mild elevation of cardiac enzymes. Patient underwent cardiac catheterization which revealed a distal disease and a circumflex marginal branch lesion which cannot be intervened because of its location and small nature. Plan is to continue medical management. Left ventricular systolic function is noted to be normal. Findings are explained to the patient in detail. He is advised close follow-up. Medications are reviewed with the patient. Patient will be seen in the office on January 29 at 1 PM in the [place] office. - Patient Problems (1) Non-ST elevated myocardial infarction (non-STEMI) Current Visit: Yes Status: Acute (2) Hypertension Current Visit: Yes Status: Acute Qualifiers: Hypertension type: H (3) CAD (coronary artery disease) Current Visit: Yes Status: Acute Qualifiers: Coronary Disease-Associated Artery/Lesion type: C [place] vs. transplanted heart: N Associated angina: A Subjective Date of service: 01/22/17 Principal diagnosis: NSTEMI Interval history: Patient is doing well today. No complications from the cardiac cath. No chest pain difficulty breathing or palpitations. Objective Vital Signs Temp Pulse Pulse Resp BP BP Pulse Ox 01/22/17 10:01 82 140/93 01/22/17 09:59 82 140/93 01/22/17 09:58 82 140/93 01/22/17 07:55 98.9 F 82 18 140/93 97 01/22/17 04:48 98.6 F 76 20 153/90 99 01/22/17 00:48 99.8 F H 77 22 147/90 99 01/21/17 22:27 86 16 99 01/21/17 22:00 92 H 124/76 01/21/17 21:45 96 H 01/21/17 20:02 98.4 F 81 22 124/72 99 01/21/17 16:14 98.2 F 82 18 137/74 99 01/21/17 14:00 98 01/21/17 12:38 98.3 F 93 H 18 148/84 95 - Physical Examination General: Appears Well HEENT: Positive: PERRL, Normocephaly, Mucus Membranes Moist Neck: Positive: neck supple, trachea midline Cardiac: Positive: Reg Rate and Rhythm Lungs: Positive: clear to auscultation Neuro: Positive: Grossly Intact, Cranial Nerve 2-12 Intact Abdomen: Positive: Unremarkable, Soft, Active Bowel Sounds Incision: Cardiac Cath Site (right radial c/d/i, no bleeding or hematoma) Extremities: Absent: edema - Imaging and Cardiology EKG: image reviewed Echo: pending Cardiac cath: report reviewed - Telemetry EKG Rhythm: Sinus Rhythm
[2017-01-22 11:53] VITALS: BP 132/81
== END 2017-01-22 15:00 | disposition home or self-care (01) | DRG 281 ==
LOC: ED 16:54 → 4A 22:56
PROVIDERS: ADMIT Internal Medicine; ATTEND Internal Medicine
PROC: 4A023N7 Measurement of Cardiac Sampling and Pressure, Left Heart, Percutaneous Approach (ICD-10-PCS; principal; 2017-01-21)
PROC: B2111ZZ Fluoroscopy of Multiple Coronary Arteries using Low Osmolar Contrast (ICD-10-PCS; 2017-01-21)
PROC: B2151ZZ Fluoroscopy of Left Heart using Low Osmolar Contrast (ICD-10-PCS; 2017-01-21)
DX: I21.4 Non-ST elevation (NSTEMI) myocardial infarction (principal); R65.10 Systemic inflammatory response syndrome (SIRS) of non-infectious origin without acute organ dysfunction; I10 Essential (primary) hypertension; E11.9 Type 2 diabetes mellitus without complications; K21.9 Gastro-esophageal reflux disease without esophagitis; F17.200 Nicotine dependence, unspecified, uncomplicated; E78.5 Hyperlipidemia, unspecified; I25.10 Atherosclerotic heart disease of native coronary artery without angina pectoris; M19.90 Unspecified osteoarthritis, unspecified site
CPT/HCPCS: 36415; 71020; 80048; 80061; 82550; 82553; 82962; 84484; 85014; 85018; 85025; 85049; 85520; 85610; 85730; 93005; 93010; 93306; 93458; 94660; 96374; 96375; A9270-GY; C1887; C1894; J1644; J2250; J2270; J2405; J3010; J7040; Q9967